=== PATIENT | male | born 1990 | race American Indian/Alaskan Native ===

== ENCOUNTER 2021-10-25 16:46 | Emergency (ER) | payer SELFPAY ==
[2021-10-25 18:53] LABS: Bilirubin,Urine NEG (Negative); Blood,Urine NEG (Negative); Color,Urine Yellow (Yellow); Mucus,Urine FEW /HPF; Protein,Urine <15 mg/dL mg/dL (Negative); Urobilinogen,Urine < 2.0 mg/dL (<2.0)
[2021-10-25] MEDS ORDERED: KETOROLAC 30 MG/1 ML INJ IV ONE (20:49)
[2021-10-25] MEDS ORDERED: SODIUM CHLORIDE 0.9% 1000 ML 1,000 ML IV ONE (20:49)
[2021-10-25] MEDS ORDERED: ONDANSETRON 4 MG/2 ML INJ IV ONE (20:49)
--- NOTE | 2021-10-25 20:56 | Emergency Department Report ---
ED Abdominal Pain HPI - General Chief Complaint: Abdominal Pain Stated Complaint: RIGHT SIDE PAIN Time Seen by Provider: 10/25/21 20:47 Source: patient Mode of arrival: Ambulatory Limitations: No Limitations - History of Present Illness Initial Comments: Is a 31-year-old Afro-Stateless male who presents for right flank pain radiating suprapubic times today. Pain is rated 5/10 sharp aching patient does notice urinary frequency. Denies hematuria. There is some dysuria. There is been some chills with 1 episode of nausea today patient denies fever. Patient denies history of renal stones no history of gallstones. Patient is occasional smoker occasional EtOH. There are no relieving factors. Symptoms are exacerbated by palpation and movement. MD Complaint: flank pain - Related Data Previous Rx's Medication Instructions Recorded Last Taken Type Ketorolac [Toradol] 10 mg PO Q6H PRN #12 tab 10/25/21 Unknown Rx Tamsulosin [Flomax] 0.4 mg PO QDAY 7 Days #7 cap 10/25/21 Unknown Rx levoFLOXacin [Levaquin TAB] 500 mg PO QDAY 7 Days #7 tablet 10/25/21 Unknown Rx Allergies Allergy/AdvReac Type Severity Reaction Status Date / Time No Known Allergies Allergy Verified 10/25/21 17:02 ED Review of Systems ROS: Stated complaint: RIGHT SIDE PAIN Other details as noted in HPI Constitutional: denies: chills, fever Eyes: denies: eye pain, eye discharge, vision change ENT: denies: ear pain, throat pain Respiratory: denies: cough, shortness of breath, wheezing Cardiovascular: denies: chest pain, palpitations Endocrine: no symptoms reported Gastrointestinal: abdominal pain, nausea, vomiting. denies: diarrhea, constip ation, hematemesis, melena, hematochezia Genitourinary: frequency. denies: urgency, dysuria, hematuria, discharge, testicular pain, testicular mass Musculoskeletal: back pain. denies: joint swelling, arthralgia Skin: denies: rash, lesions Neurological: denies: headache, weakness, paresthesias, vertigo Psychiatric: denies: anxiety, depression Hematological/Lymphatic: as per HPI ED Past Medical Hx - Past Medical History Previous Medical History?: No - Surgical History Past Surgical History?: No - Medications Home Medications: Home Medications Medication Instructions Recorded Confirmed Last Taken Type Ketorolac [Toradol] 10 mg PO Q6H PRN #12 tab 10/25/21 Unknown Rx Tamsulosin [Flomax] 0.4 mg PO QDAY 7 Days #7 cap 10/25/21 Unknown Rx levoFLOXacin [Levaquin TAB] 500 mg PO QDAY 7 Days #7 tablet 10/25/21 Unknown Rx ED Physical Exam - General Limitations: No Limitations General appearance: alert, in no apparent distress - Head Head exam: Present: normocephalic - Eye Eye exam: Present: PERRL, EOMI Pupils: Present: normal accommodation - ENT ENT exam: Present: mucous membranes moist - Neck Neck exam: Present: normal inspection, full ROM. Absent: tenderness - Respiratory Respiratory exam: Present: normal lung sounds bilaterally. Absent: respiratory distress, wheezes, stridor, chest wall tenderness - Cardiovascular Cardiovascular Exam: Present: regular rate, normal rhythm, normal heart sounds. Absent: systolic murmur, diastolic murmur, rubs, gallop - GI/Abdominal GI/Abdominal exam: Present: soft, distended, tenderness (Right flank), normal bowel sounds. Absent: guarding, rebound, rigid, bruit, hernia - Rectal Rectal exam: Present: deferred - Extremities Exam Extremities exam: Present: normal inspection, full ROM. Absent: tenderness - Back Exam Back exam: Present: full ROM, CVA tenderness (R). Absent: CVA tenderness (L) - Neurological Exam Neurological exam: Present: alert, oriented X3, CN II-XII intact - Expanded Neurological Exam Expanded Patient oriented to: Present: person, place, time Speech: Present: fluid speech Best Eye Response ([place]): (4) open spontaneously Best Motor Response ([place]): (6) obeys commands Best Verbal Response ([place]): (5) oriented [place] Total: 15 - Psychiatric Psychiatric exam: Present: normal affect, normal mood - Skin Skin exam: Present: warm, dry, intact, normal color. Absent: rash ED Course Vital Signs 10/25/21 17:03 Temperature 97.6 F Pulse Rate 80 Respiratory 20 Rate Blood Pressure 146/80 O2 Sat by Pulse 100 Oximetry ED Medical Decision Making - Lab Data Result diagrams: 10/25/21 21:31 Labs 10/25/21 10/25/21 17:10 21:31 WBC 12.5 H RBC 5.03 Hgb 14.9 Hct 45.0 MCV 90 MCH 30 MCHC 33 RDW 13.3 Plt Count 396 Lymph % (Auto) 3.9 L [place] % (Auto) 5.8 Eos % (Auto) 0.0 Baso % (Auto) 0.3 Lymph # (Auto) 0.5 L [place] # (Auto) 0.7 Eos # (Auto) 0.0 Baso # (Auto) 0.0 Seg Neutrophils % 90.0 H Seg Neutrophils # 11.3 H Urine Color Yellow Urine Turbidity Clear Urine pH 5.0 Ur Specific [place] 1.024 Urine Protein <15 mg/dl Urine Glucose (UA) Neg Urine Ketones Neg Urine Blood Neg Urine Nitrite Neg Urine Bilirubin Neg Urine Urobilinogen < 2.0 Ur Leukocyte Esterase Neg Urine WBC (Auto) 1.0 Urine RBC (Auto) 4.0 U Epithel Cells (Auto) 2.0 Urine Mucus Few - Radiology Data Radiology results: report reviewed, image reviewed CT ABDOMEN AND PELVIS WITHOUT CONTRAST INDICATION / CLINICAL INFORMATION: r/o obstructive renal stone. TECHNIQUE: Axial CT images were obtained through the abdomen and pelvis without IV contrast. All CT scans at this location are performed using CT dose reduction for ALARA by means of automated exposure control. COMPARISON: None available. FINDINGS: LOWER CHEST: No significant abnormality LIVER: No significant abnormality GALLBLADDER/BILIARY TREE: No significant abnormality PANCREAS: No significant abnormality SPLEEN: No significant abnormality ADRENALS: No significant abnormality RIGHT KIDNEY / URETER: 3 mm stone at the right UVJ with mild right hydronephrosis and asymmetric right perinephric stranding with edematous appearance of the right kidney. LEFT KIDNEY / URETER: 3 mm nonobstructive stone in the lower pole left renal calyx. No urolithiasis or hydronephrosis. URINARY BLADDER: No significant abnormality REPRODUCTIVE ORGANS: No significant abnormality STOMACH / BOWEL: Small bowel is normal in caliber. The colon is unremarkable. The appendix is normal in caliber. LYMPH NODES: No significant adenopathy. VASCULATURE: No significant abnormality. OTHER: No free air, free fluid, or focal fluid collection is identified. SKELETAL SYSTEM: No acute osseous findings. IMPRESSION: 1. 3 mm obstructive right UVJ stone with mild right hydronephrosis. 2. 3 mm nonobstructing left renal stone. No urolithiasis or hydronephrosis on the left. Signer Name: Chau Schulz MD Signed: 10/25/2021 9:40 PM Workstation Name: [id number] Transcribed By: JS Dictated By: CHAU SCHULZ MD Electronically Authenticated By: CHAU SCHULZ MD Signed Date/Time: 10/25/212139 DD/ 37 TD/TT: - Medical Decision Making CT abdomen and pelvis left 3 mm obstructive UVJ stone. Right 3 mm nonobstructive stone. WBC is 12.5. Other labs noted plan patient treated with Rocephin and IV fluids in ED. Patient is now tolerating p.o. intake there is no nausea no vomiting. There has been no fever. Plan DC to home with prescriptions. Follow-up with urology in 2 to 3 days. Return to emergency department should symptoms worsen or unable to void. Patient verbalized agreement and understanding with discharge plan. Patient will be DC to home after completion of medications. Critical care attestation.: If time is entered above; I have spent that time in minutes in the direct care of this critically ill patient, excluding procedure time. ED Disposition Clinical Impression: Renal stones Disposition: 01 HOME / SELF CARE / HOMELESS Is pt being admited?: No Does the pt Need Aspirin: No Condition: Stable Instructions: Kidney Stones, [id number], Dietary Guidelines to Help Prevent Kidney Stones Additional Instructions: Take medications as prescribed, follow-up with urology in 2 to 3 days. Return to emergency department should symptoms worsen. Are unable to void. Prescriptions: Tamsulosin [Flomax] 0.4 mg PO QDAY 7 Days #7 cap levoFLOXacin [Levaquin TAB] 500 mg PO QDAY 7 Days #7 tablet Ketorolac [Toradol] 10 mg PO Q6H PRN #12 tab PRN Reason: Pain Referrals: JOSE AVILA MD [Staff Physician] - 3-5 Days Forms: Work/School Release Form(ED) Time of Disposition: 22:01
[2021-10-25 21:44] LABS: Basophils % (Auto) 0.3 % (0.0-1.8); Hemoglobin 14.9 gm/dl (11.8-15.2); Lymphocytes # (Auto) 0.5 K/mm3 (1.2-5.4); Lymphocytes % (Auto) 3.9 % (13.4-35.0); Mean Corpuscular HGB Conc 33 % (32-34); Mean Corpuscular Volume 90 fl (84-94); Monocytes # (Auto) 0.7 K/mm3 (0.0-0.8); Monocytes % (Auto) 5.8 % (0.0-7.3); Platelet Count 396 K/mm3 (140-440); Red Blood Count 5.03 M/mm3 (3.65-5.03); Red Cell Distribution Width 13.3 % (13.2-15.2)
--- NOTE | 2021-10-25 21:44 | Cat Scan Report ---
CT ABDOMEN AND PELVIS WITHOUT CONTRAST INDICATION / CLINICAL INFORMATION: r/o obstructive renal stone. TECHNIQUE: Axial CT images were obtained through the abdomen and pelvis without IV contrast. All CT scans at this location are performed using CT dose reduction for ALARA by means of automated exposure control. COMPARISON: None available. FINDINGS: LOWER CHEST: No significant abnormality LIVER: No significant abnormality GALLBLADDER/BILIARY TREE: No significant abnormality PANCREAS: No significant abnormality SPLEEN: No significant abnormality ADRENALS: No significant abnormality RIGHT KIDNEY / URETER: 3 mm stone at the right UVJ with mild right hydronephrosis and asymmetric righ t perinephric stranding with edematous appearance of the right kidney. LEFT KIDNEY / URETER: 3 mm nonobstructive stone in the lower pole left renal calyx. No urolithiasis o r hydronephrosis. URINARY BLADDER: No significant abnormality REPRODUCTIVE ORGANS: No significant abnormality STOMACH / BOWEL: Small bowel is normal in caliber. The colon is unremarkable. The appendix is normal in caliber. LYMPH NODES: No significant adenopathy. VASCULATURE: No significant abnormality. OTHER: No free air, free fluid, or focal fluid collection is identified. SKELETAL SYSTEM: No acute osseous findings. IMPRESSION: 1. 3 mm obstructive right UVJ stone with mild right hydronephrosis. 2. 3 mm nonobstructing left renal stone. No urolithiasis or hydronephrosis on the left. Signer Name: Mk Salinas MD Signed: 10/25/2021 9:40 PM Workstation Name: [id number]
[2021-10-25] MEDS ORDERED: cefTRIAXone/NS 1 GM/50 ML 1 GM/50 ML BAG IV ONE (22:02)
[2021-10-25 22:11] LABS: Calcium 9.7 mg/dL (8.4-10.2)
[2021-10-25 23:17] VITALS: BP 142/77
== END 2021-10-25 23:37 | disposition home or self-care (01) ==
LOC: ED 16:46
DX: N20.0 Calculus of kidney (principal); Z79.899 Other long term (current) drug therapy
CPT/HCPCS: 36415; 74176; 80053; 81001; 85025; 96365; 96375; 99284; J0696; J1885; J2405; J7030